=== PATIENT | female | born 1990 | race Caucasian/White ===

== ENCOUNTER 2020-04-02 07:36 | Day surgery (SDC) | payer OTHER, SELFPAY ==
[~2020-04-02] VITALS: Ht 154.9 cm; Wt 56.7 kg
[2020-04-02 08:32] LABS: HCG,QUAL RESULT NEGATIVE (NEGATIVE)
[2020-04-02] MEDS ORDERED: hydrALAZINE HCL 20 MG/ML VIAL IVP PRN (11:30)
[2020-04-02] MEDS ORDERED: MEPERIDINE HCL/PF 25 MG/ML DISP.SYRIN IVP PRN (11:30)
[2020-04-02] MEDS ORDERED: METOCLOPRAMIDE HCL 10 MG/2 ML VIAL IVP PRN (11:30)
[2020-04-02] MEDS ORDERED: LABETALOL 100 MG/ 20ML VIAL IVP PRN (11:30)
[2020-04-02] MEDS ORDERED: LR 1,000 ML IV SCH (11:30)
[2020-04-02] MEDS ORDERED: ONDANSETRON HCL 4 MG/2 ML VIAL IVP PRN (11:30)
[2020-04-02] MEDS ORDERED: MIDAZOLAM HCL 2 MG/2 ML VIAL (VERSED) IVP PRN (11:30)
[2020-04-02] MEDS ORDERED: HYDROmorphone 1 MG INJ. 1 MG/ML AMPUL IVP PRN ×2 (11:30)
[2020-04-02] MEDS ORDERED: OXYMETAZOLINE HCL 0.05% NASAL SPRAY NS ONE (12:30)
[2020-04-02] MEDS ORDERED: ROCURONIUM BROMIDE 10 MG/ML (ZEMURON) ONE (12:30)
[2020-04-02] MEDS ORDERED: KETOROLAC TROMETHAMINE 30 MG VIAL ONE (12:30)
[2020-04-02] MEDS ORDERED: PROPOFOL 200MG/ 20ML VIAL (DIPRIVAN) IV ONE (12:30)
[2020-04-02] MEDS ORDERED: fentaNYL CITRATE 250 MCG/5 ML AMP ONE (12:30)
[2020-04-02] MEDS ORDERED: LIDOCAINE 1% 10 MG/ML, 20 ML MDV ONE (12:30)
[2020-04-02] MEDS ORDERED: DEXAMETHASONE SOD PHOSPHATE 4 MG/ML VIAL ONE (12:30)
[2020-04-02] MEDS ORDERED: MUPIROCIN 2% TOPICAL OINTMENT 22 GM ONE (12:30)
[2020-04-02] MEDS ORDERED: SUGAMMADEX SODIUM 200 MG/2 ML VIAL IV ONE (12:30)
[2020-04-02] MEDS ORDERED: NS IRRIG SOLN 1000 ML IR ONE (12:30)
[2020-04-02] MEDS ORDERED: DESFLURANE 15 MIN GAS INH ONE (12:30)
[2020-04-02] MEDS ORDERED: LR 1,000 ML IV.SOLN IV ONE (12:30)
[2020-04-02] MEDS ORDERED: ONDANSETRON HCL 4 MG/2 ML VIAL ONE (12:30)
[2020-04-02] MEDS ORDERED: LIDOCAINE/EPI 1% 1:100000 20 ML VIAL INJ ONE (12:30)
[2020-04-02] MEDS ORDERED: MIDAZOLAM HCL 5 MG/ML VIAL (VERSED) IV ONE (12:30)
[2020-04-02] MEDS ORDERED: METOPROLOL TARTRATE 5 MG/5 ML VIAL ONE (12:30)
[2020-04-02] MEDS ORDERED: EPINEPHrine 1 MG/ML AMP ONE (12:30)
[2020-04-02 15:12] VITALS: BP_SYST 109
== END 2020-04-02 15:40 | disposition home or self-care (01) ==
LOC: SDS 07:36 → SMU 07:37 → SDS 15:40
PROVIDERS: ATTEND Otolaryngology
DX: J34.89 Other specified disorders of nose and nasal sinuses (principal); J34.2 Deviated nasal septum; H68.101 Unspecified obstruction of Eustachian tube, right ear; R07.0 Pain in throat; R09.82 Postnasal drip; J30.1 Allergic rhinitis due to pollen; Z79.899 Other long term (current) drug therapy; Z20.828 Contact with and (suspected) exposure to other viral communicable diseases
CPT/HCPCS: 30140; 30520; 84703; 88305; 88311; C9399; J0171; J1100; J1885; J2001; J2250; J2405; J2704; J3010; J3490; J7120; U0003